=== PATIENT | female | born 2005 | race Caucasian/White ===

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

== ENCOUNTER 2025-01-23 19:44 | Emergency (ER) | payer OTHER, SELFPAY ==
[2025-01-23 19:45] VITALS: BP 125/81
[2025-01-23 20:21] LABS: % Basophils 0.4 % (0-2); % Eosinophils 0.6 % (0-6); % Immature Granulocytes 0.4 % (0-0.5); % Lymphocytes 10.5 % (20.5-51.1); % Monocytes 5.4 % (1.7-9.3); % Neutrophils 82.7 % (42.2-75.2); Absolute Eosinophils 0.1 10^3/uL (0-0.7); Absolute Lymphocytes 0.8 10^3/uL (1.2-3.4); Absolute Monocytes 0.4 10^3/uL (0.1-0.6); Absolute Neutrophils 6.6 10^3/uL (1.4-6.5); Mean Corp Hgb Conc. 34.1 g/dL (33.0-37.0); Mean Corpuscular Hgb 29.9 pg (27.0-31.0); Mean Corpuscular Volume 87.6 fL (81.0-99.0); Nucleated Red Blood Cells % 0 %; Platelet Count 202 10^3/uL (130-400); Red Blood Cell Count 4.68 10^6/uL (4.20-5.40); Red Cell Dist. Width 13.1 % (11.5-14.5)
[2025-01-23 20:31] LABS: HCG, Serum Qualitative Screen Negative
[2025-01-23 20:40] LABS: ALT (SGPT) 20 U/L (0-35); AST (SGOT) 24 U/L (14-36); Albumin 4.7 g/dl (3.5-5.0); Alkaline Phosphatase 104 U/L (38-126); Blood Urea Nitrogen 8 mg/dl (7-17); Calcium 9.8 mg/dl (8.4-10.2); Carbon Dioxide 23 mmol/L (22-30); Chloride 104 mmol/L (98-107); Glucose 110 mg/dl (70-99); Potassium 4.2 mmol/L (3.5-5.1); Sodium 138 mmol/L (135-145); Total Bilirubin 0.6 mg/dl (0.2-1.3); Total Protein 7.6 g/dl (6.3-8.2); eGFR > 60.00
--- NOTE | 2025-01-23 20:40 | ED.GENMED ---
History of Present Illness
General
Chief Complaint: Cold/Flu/URI Symptoms
Source: patient
Exam Limitations: none
Time Seen by Provider: 01/23/25 20:33
History of Present Illness
History of Present Illness:
See MDM
Past History
Past History
ED Past Medical History: None
ED Past Surgical History: Other (Adenoidectomy)
Social History
Tobacco: Non-smoker
Alcohol: Occasional
Personal: Single
Living: with roommate
Employment: Student
Phy Exam
Physical Exam
Physical Exam:
See MDM
Course
Orders/Labs/Results
Orders:
Orders
01/23/25 19:50
Test Result ONCE
01/23/25 20:01
Complete Blood Count/With Diff Urgent
Comprehensive Metabolic Panel Urgent
HCG, Serum Qualitative Screen Urgent
Monotest Urgent
01/23/25 20:21
COVID-19 Antigen Urgent
Source: Nasal Swab
Influenza A+B Rapid Molecular Urgent
BERTHA Source: Nasal Swab
Specimen Description:
Date Specimen was Collected: 01/23/25
Time Specimen was Collected: 19:50
01/23/25 20:23
Rapid Strep Group A Urgent
BERTHA Source: Throat/Pharynx
Specimen Description:
Date Specimen was Collected: 01/23/25
Time Specimen was Collected: 19:50
01/23/25 20:39
Amoxicillin 875 mg/Clav 125 mg [Augmentin 875 mg/125 mg] 1 tablet PO NOW STA
Dexamethasone Pf [Decadron] 10 mg PO NOW STA
Ipratropium/Albuterol Sulfate [Duoneb] 3 ml INH R NOW STA
Abnormal Lab Results
01/23/25
20:01
MPV 11.0 H fL
(7.4-10.4)
Absolute Neuts (auto) 6.6 H 10^3/uL
(1.4-6.5)
Absolute Lymphs (auto) 0.8 L 10^3/uL
(1.2-3.4)
Neutrophils % 82.7 H %
(42.2-75.2)
Lymphocytes % 10.5 L %
(20.5-51.1)
Glucose 110 H mg/dl
(70-99)
01/23/25 20:01
01/23/25 20:01
Vital Signs
Initial and Last Documented VS:
Initial Vital Signs
Temp Pulse Resp BP Pulse Ox
98.4 F 92 20 125/81 99
01/23/25 19:45 01/23/25 19:45 01/23/25 19:45 01/23/25 19:45 01/23/25 19:45
Last Documented Vital Signs
Temp Pulse Resp BP Pulse Ox
98.4 F 92 16 125/81 99
01/23/25 19:45 01/23/25 19:45 01/23/25 20:40 01/23/25 19:45 01/23/25 19:45
MDM/Problems Addressed
Differential Diagnosis Includes:
HPI and MDM Narrative:
19-year-old female presenting with sinus congestion, headache and cough. This has been ongoing for more than a week or so. She is residing in college and she is around sick contacts. On exam, patient has clear signs of sinusitis. She has mild
postnasal drip. We discussed this is likely viral but given duration of symptoms, will consider antibiotics. When I did listen to her lungs, there was a very mild inspiratory wheeze left lower base. We discussed possible mucous plugging versus
possible pneumonia. At this point, it was shared decision making to start antibiotics regardless. Will give DuoNeb and give dose of Decadron and start Augmentin
Physical exam
General: Well appearing and non-toxic
HEENT: protecting airway. Sinus congestion. Postnasal drip
Neck: appears supple
CV: No evidence of cyanosis
Resp: No accessory muscle use. Mild inspiratory wheeze to left lung base
Abd: Non-distended
Extremities: No deformities
Neuro: alert
Psych: Normal affect
Skin: Intact
Problems Addressed including Acute and Chronic Conditions affecting care:
1. Sinusitis
Acuity: acute
Prognosis: stable
Details: Will start steroids. Given duration of symptoms, will start Augmentin
2. Cough
Acuity: acute
Prognosis: stable
Details: Given the mild wheeze, will start DuoNeb
Updates
Patient found to be influenza B positive. Patient was comfortable going home
Differential Diagnosis (but not limited to): Viral syndrome, bacterial sinusitis, pneumonia, bronchitis
Testing considered: Chest x-ray patient is very well-appearing and will start antibiotics regardless
Drug therapy (if applicable): OTC meds, please see d/c instruction regarding Rx drugs
Amount and/or Complexity of Data Reviewed
Clinical info obtained from: Patient
External data reviewed: N/A
Labs I independently reviewed (but not limited to): White blood cell count normal
Radiology: N/A
Pulse Ox: not hypoxic
EKG independently reviewed: N/A
Shear Operator Automatic: N/A
Critical Care: N/A
Risk of Complication:
Social Determinants of health: Good social support
Discussed with other providers: N/A
Escalation of Care includes Admit/Obs: After being observed in the Emergency Department, pt stable for discharge.
Occasional wrong word or 'sound a like' substitutions may have occurred due to the inherent limitations of voice recognition software. Read the chart carefully and recognize, using context, where substitutions have occurred.
*Critical Care Note
Total Time (30-74mins, 75-104mins- exclusive of procedures): Not Applicable
ED Attending Note
-
Portions of this chart may have been created with voice recognition software.� Occasional wrong word or��sound alike� substitutions may have occurred due to the inherent limitations of voice recognition software.
Discharge Plan
Departure
Patient Disposition: Home (Routine Discharge)
Date of Disposition: 01/23/25
Time of Disposition: 21:02
Patient with high blood pressure during this ER visit?: No
Discharge Problem:
Acute sinusitis, Influenza B
Prescriptions:
New
prednisone 20 mg tablet
40 mg PO DAILY Qty: 10 0RF
albuterol sulfate 90 mcg/actuation HFA aerosol inhaler
2 puff inhalation Q6H PRN (Reason: shortness of breath or wheezing) Qty: 8.5 0RF
amoxicillin-pot clavulanate 875-125 mg tablet
1 tab PO BID Qty: 14 0RF
Referrals:
Jamison Chavarria MD [Family Provider] -
Stand Alone Forms: Back to School
Activity Restrictions/Additional Instructions:
Please return for any worsening symptoms.
You may return at any time if you have further concerns.
The steroids and inhaler will help. If you start to spike fevers or symptoms worsen, you can start the antibiotics.
Please follow up with your doctor at the first available appointment, preferably this week.
Thank you for choosing [facility].
Interventions
Interventions:
*Risk Screen - Suicide Last Done: 01/23/25 20:32
*General Assessment Last Done: 01/23/25 19:45
*Neglect/Abuse Screening Last Done: 01/23/25 20:32
*ED- Fall Risk Assessment Last Done: 01/23/25 20:32
*ED COVID-19 Vaccine History Last Done: 01/23/25 20:32
ED- Pulmonary Assessment Last Done: 01/23/25 20:32
Discharge Date and Time
Print Language: JAPANESE
[2025-01-23] MEDS: DUONEB 3 ML INH (20:43)
[2025-01-23] MEDS: AUGMENTIN 875 MG/125 MG 1 TABLET PO (20:43)
[2025-01-23] MEDS: DECADRON 10 MG PO (20:43)
[2025-01-23 20:48] LABS: COVID-19 Antigen Negative (Negative)
[2025-01-23 21:53] LABS: Monotest Negative (Negative)
== END 2025-01-23 21:12 | disposition home or self-care (01) ==
LOC: EMR 19:44
PROVIDERS: Emergency Medicine; EMERGENCY PHYSICIAN Student in an Organized Health Care Education/Training Program; FAMILY PHYSICIAN Student in an Organized Health Care Education/Training Program
DX: J01.90 Acute sinusitis, unspecified (principal); J10.1 Influenza due to other identified influenza virus with other respiratory manifestations; Z11.52 Encounter for screening for COVID-19; Z91.048 Other nonmedicinal substance allergy status
CPT/HCPCS: 99283; 94640; 80053; 84703; 85025; 86308; 87070; 87502; 87811; 87880

== ENCOUNTER 2025-02-22 12:27 | Emergency (ER) | payer OTHER, SELFPAY ==
[2025-02-22 12:28] VITALS: BP 135/92
--- NOTE | 2025-02-22 13:06 | ED.MUSCINJ ---
HPI-Injury
General
Chief Complaint: Musculo-Skeletal Complaint
Source: patient
Exam Limitations: none
Time Seen by Provider: 02/22/25 12:52
History of Present Illness-Injury
Initial Injury comments:
19-year-old female presents complaining of right ankle and left foot pain. She has been dealing with a left foot injury she injured playing lacrosse about 2 weeks ago. She has been in a boot in her left foot. She never was formally evaluated
regarding this injury however today she tripped over her boot and then twisted her right ankle. She notes pain and swelling to the lateral aspect and medial portion of the right ankle. No other complaints at this time
Past History
Past History
ED Past Medical History: None
ED Past Surgical History: Other (Adenoidectomy)
Social History
Tobacco: Non-smoker
Alcohol: Occasional
Personal: Single
Living: with roommate
Employment: Student
Phy Exam
Physical Exam
Physical Exam:
General: Well-appearing female no acute respiratory distress musculoskeletal exam:
Right ankle swollen tender over the lateral aspect of the ankle inferior to the distal fibula. She is also slightly tender over the medial aspect of the ankle. No deformities good range of motion able to fuad and invert. Left foot is slightly
tender over the lateral aspect of the midfoot. No deformity or swelling. Good range of motion
Vascular: 2+ DP pulse bilaterally
Injury Course
Orders/Labs/Results
Orders:
Orders
02/22/25 12:33
CR Ankle - Right Min 3 Views * Urgent
Comment:
Reason For Exam: trauma
CR Foot - Left Min 3 Views Urgent
Comment:
Reason For Exam: trauma
MDM/Problems Addressed
Differential Diagnosis Includes:
Right ankle and left foot pain following injuries. Consider sprain versus fractures versus dislocation
X-rays right ankle personally visualized and are negative for acute bony abnormality. I suspect underlying sprain. Left foot x-rays were also seen and are negative for fracture or dislocation. I suspect ongoing sprain to the left with acute
sprain of the right ankle. The subacute injury to the left foot is less urgent at this time. She will wear a boot on her right foot and use crutches for support. Recommend follow-up with specialist
*Critical Care Note
Total Time (30-74mins, 75-104mins- exclusive of procedures): Not Applicable
ED Attending Note
-
Portions of this chart may have been created with voice recognition software.� Occasional wrong word or��sound alike� substitutions may have occurred due to the inherent limitations of voice recognition software.
Discharge Plan
Departure
Patient Disposition: Home (Routine Discharge)
Date of Disposition: 02/22/25
Time of Disposition: 13:09
Patient with high blood pressure during this ER visit?: No
Discharge Problem:
Right ankle sprain, Sprain of foot, left
Instructions: Muscle and Bone Pain (DC)
Prescriptions:
No Action
prednisone 20 mg tablet
40 mg PO DAILY Qty: 10 0RF
albuterol sulfate 90 mcg/actuation HFA aerosol inhaler
2 puff inhalation Q6H PRN (Reason: shortness of breath or wheezing) Qty: 8.5 0RF
amoxicillin-pot clavulanate 875-125 mg tablet
1 tab PO BID Qty: 14 0RF
Referrals:
Taiwo Stout MD [Active] -
Activity Restrictions/Additional Instructions:
Use boot for support on right foot. Use crutches for support when ambulating. Elevate for swelling. Use Tylenol or ibuprofen. Follow-up with orthopedics for further evaluation
Interventions
Interventions:
*Risk Screen - Suicide Last Done: 02/22/25 13:04
*General Assessment Last Done: 02/22/25 13:04
*Neglect/Abuse Screening Last Done: 02/22/25 13:04
*ED- Fall Risk Assessment Last Done: 02/22/25 13:04
*ED COVID-19 Vaccine History Last Done: 02/22/25 13:04
ED-Musculoskeletal Assessment Last Done: 02/22/25 13:06
Discharge Date and Time
Print Language: GIBRALTARIAN
== END 2025-02-22 13:24 | disposition home or self-care (01) ==
LOC: EMR 12:27
PROVIDERS: EMERGENCY PHYSICIAN Emergency Medicine; FAMILY PHYSICIAN Family Medicine
DX: S93.401A Sprain of unspecified ligament of right ankle, initial encounter (principal); S93.602A Unspecified sprain of left foot, initial encounter; X50.1XXA Overexertion from prolonged static or awkward postures, initial encounter
CPT/HCPCS: 99283; 73610; 73630